=== PATIENT | male | born 1945 | race Caucasian/White ===

== ENCOUNTER → 2019-01-25 | Outpatient (CLI) | payer MEDICARE ==
--- NOTE | 2019-01-25 16:25 | PCVCIMAG ---
EXAM: BILATERAL CAROTID DUPLEX INDICATION: Carotid Occlusive Disease. FINDINGS: Doppler Measurements (centimeters per second): RIGHT: Peak CCA-83, Peak ECA-124, Diastolic ICA-16, Peak ICA-79, ICA/CCA Ratio-0.9. LEFT: Peak CCA-98, Peak ECA-126, Diastolic ICA-14, Peak ICA-82, ICA/CCA Ratio-0.8. RIGHT CAROTID: The carotid bulb has mild plaque. The proximal internal carotid artery shows <40% stenosis. The common carotid artery shows no significant stenosis. The external carotid artery shows no significant stenosis. LEFT CAROTID: The carotid bulb has moderate plaque. The proximal internal carotid artery shows <40% stenosis. The common carotid artery shows no significant stenosis. The external carotid artery shows no significant stenosis. Antegrade flow in both vertebral arteries. IMPRESSION: <40% stenosis of the right internal carotid artery with mild plaque. <40% stenosis of the left internal carotid artery with moderate plaque. LOC:[place] [id number]
--- NOTE | 2019-01-26 12:46 | PCVCIMAG ---
APPROVED REPORT Study performed: 01/25/2019 15:01:29 Exam: Stress Echocardiogram Indication: Dyspnea , Chest tightness Patient Location: Echo lab Stress Nurse: Elysia Herring RN Room #: 2 Status: routine Ht: 5 ft 8 in HR: 92 bpm BP: 134/60 mmHg Rhythm: NSR Medical History Medical History: asthma, AI, calcification of aorta by CT Cardiac Risk Factors: Hyperlipidemia Pretest Chest Pain Characteristics: No chest pain Exercise History: Physically active Procedure The patient underwent an Exercise Stress Test using the Kim Protocol. Blood pressure, heart rate, and EKG were monitored. An Echocardiogram was performed by communication technician in four stages in quad fashion. At peak stress, four selected images were obtained and placed side by side with resting images for comparison. Stress Test Details HR Max Heart Rate (APMHR): 146 bpm Target HR (85% APMHR): 124 bpm BP ECG Resting ECG: Sinus Rhythm Stress ECG: Sinus Rhythm, NSSTT changes ST Change: Upsloping ST depression Arrhythmia: rare PVCs Recovery ECG: Sinus Rhythm, nonspecific ST-T abnormalities Recovery ST Change: Non-ischemic Recovery Arrhythmia: None Clinical Reason for Termination: Maximal effort Stress Symptoms: Fatigue Exercise duration: 7 min 29 sec Highest Stage Achieved: Stage 3: 3.4 mph at 14% grade. Exercise capacity: 10.1 METs Overall Exercise Capacity for Age: Average Scale: Active Angina Score: None No complications. Stress ECG Conclusion The patient exercised according to the KIM protocol for 7:29 mins; achieving a work level of 10.1 METS. The resting heart rate of 92 bpm cnochita to a maximum heart rate of 164 bpm. This value represent 112% of the maximal, age-predicted heart rate. The resting blood pressure of 134/60 mmHg, conchita to a maximum blood pressure of 180/70 mmHg. The exercise test was stopped due to fatigue. Patient used his inhaler just prior to the test which may have affected the resting heart rate. Pre-Stress Echo The resting Echocardiogram showed normal left ventricular contractility with an estimated Ejection Fraction of about 55-60%. Normal wall motion in all segments on baseline images. Post-Stress Echo The stress Echocardiogram showed normal left ventricular contractility with an estimated Ejection Fraction of about 65-70%. Normal augmentation of wall motion in all segments on post stress images. Clinical No clinical or ECG evidence for ischemia. Conclusion Clinical Response: Non-ischemic Exercise Capacity: Average Stress ECG Response: Non-ischemic Stress Echo Images: Non-ischemic No clinical, EKG or echocardiographic evidence for ischemia. No echocardiographic evidence for exercise induced ischemia. Normal stress echocardiogram with maximal exercise stress. <Conclusion> No clinical, EKG or echocardiographic evidence for ischemia. No echocardiographic evidence for exercise induced ischemia. Normal stress echocardiogram with maximal exercise stress.
== END | disposition home or self-care (01) ==
LOC: PCVCIMAG 08:00
PROVIDERS: ATTEND Internal Medicine Cardiovascular Disease
DX: I65.23 Occlusion and stenosis of bilateral carotid arteries (principal); R06.00 Dyspnea, unspecified; R07.89 Other chest pain; J45.909 Unspecified asthma, uncomplicated; R09.89 Other specified symptoms and signs involving the circulatory and respiratory systems
CPT/HCPCS: 93325; 93351; 93880

== ENCOUNTER → 2019-03-23 | Outpatient (CLI) | payer MEDICARE | END | disposition home or self-care (01) | LOC: PCVCCLINIC 15:40 | PROVIDERS: ATTEND Internal Medicine Cardiovascular Disease | DX: E78.00 Pure hypercholesterolemia, unspecified (principal); J45.909 Unspecified asthma, uncomplicated; Z88.8 Allergy status to other drugs, medicaments and biological substances | CPT/HCPCS: 36415; 80061; 85610 ==

== ENCOUNTER → 2020-06-12 | Outpatient (CLI) | payer MEDICARE ==
[~2020-06-12] MED LIST: ZOLPIDEM 5 MG TABLET. PO ONE
--- NOTE | 2020-06-14 12:45 | SLEEP ---
DATE OF STUDY: 06/12/2020 SLEEP STUDY REFERRING PHYSICIAN: Keny Tesfaye. The patient is a 74-year-old who weighs 140 pounds with a BMI of 22. The patient's [place] score was 19. The patient underwent split night study performed at [facility]. During the night study, the patient spent 422 minutes in bed and slept for 293 minutes with a sleep efficiency of 70%. Sleep latency was 82 minutes with a REM latency of 287 minutes. Sleep architecture showed normal stage 1 sleep, increased stage 2 sleep, normal slow wave and reduced REM sleep. During the initial diagnostic portion of the study, the patient slept for 66 minutes. During that time, the patient had 15 mixed apneas, no central or obstructive apneas, but 43 hypopneas. The patient's AHI was 53 per hour. Supine AHI 106 per hour. REM sleep was not seen during the diagnostic portion. EKG monitoring revealed normal sinus rhythm, average heart rate 85 beats per minute, no sustained arrhythmias observed. PLMS were seen at index of 39 per hour and 17 per hour caused EEG arousals. Nocturnal oximetry study revealed a mean oxygen saturation of 94% with lowest of 83%. 70% of the time was spent with oxygen saturation between 80% and 89%. The patient was started on CPAP at 5 cm water and titrated up to 15 cm water. At the final pressure, the patient slept for 152 minutes. The patient had supine as well as REM sleep. The patient's AHI was reduced to 1 per hour and oxygen saturation remained above 90%. The patient used small size full face mask. IMPRESSION: 1. Severe obstructive sleep apnea at an AHI of 53 per hour. 2. Nocturnal hypoxia secondary to obstructive sleep apnea, but resolved with CPAP. 3. Moderate periodic limb movements. RECOMMENDATIONS: 1. CPAP at 15 cm water completely eliminated the patient's sleep apnea and should be used on a nightly basis. The patient used a small size full face mask. 2. Follow up in 4-6 weeks to assess compliance with CPAP and to document clinical improvement. 3. Avoid DATA ANALYST ETL DEVELOPER depressants. 4. Cautioned regarding driving until symptoms of sleep apnea resolve with the use of CPAP. 5. The patient should also be further evaluated for symptoms of restless legs during the day. ANGELO LLOYD MD DR: YESI/doc JOB#: [id number] / [id number] KENY Soriano TIMOTHY MD
== END | disposition home or self-care (01) ==
LOC: RT 18:46
PROVIDERS: ATTEND Internal Medicine Critical Care Medicine
DX: G47.33 Obstructive sleep apnea (adult) (pediatric) (principal)
CPT/HCPCS: 95810